=== PATIENT | male | born 2000 ===

== ENCOUNTER 2023-12-28 12:30 | Outpatient (AMB) | payer MEDICAID, SELFPAY ==
--- NOTE | 2023-12-28 13:03 | AM.OFFWIN_ITS ---
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 He has a primary care patient of [facility] in [facility], however has not been able to get in for an appointment. 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 Has done ADVERTISING COPY WRITER worked in the past without any issues. Past medical history is significant for a benign brain tumor, which is followed by [facility] and [facility]. He does have a ASSESSMENT CLINICIAN shunt for this, and over the years has had several shunt revisions. This has been stable for several years, and he is just monitored with an annual MRI. He denies any other medical issues, complaints, or complications. He is not on any medications. He denies any past injuries. He states he exercises regularly and eats well. Recently had a son. [facility] Medical History (Updated 12/28/23 @ 13:20 by YAZAN Villasenor) Benign brain tumor Surgical History S/P ASSESSMENT CLINICIAN shunt Social History Patient Tobacco Use Status: Never used Tobacco Review of Systems Const All systems reviewed & are unremarkable except as noted in HPI and below Physical Exam Vital Signs: Last Vital Signs Pulse 74 12/28/23 13:04 BP 122/82 12/28/23 13:04 Pulse Ox 98 12/28/23 13:04 Oxygen Delivery Method Room Air 12/28/23 13:04 Const General: cooperative, healthy appearing, comfortable and no acute distress Nutritional Appearance: average body habitus and well nourished Orientation/consciousness: patient oriented x3 Limitations: no limitations HEENT Head: Yes normal to inspection Ears: hearing grossly normal bilaterally General nose exam: Normal external nose present Face and sinus: Yes normal facial exam Throat: Yes posterior oropharynx normal Eyes General: appearance normal, both eyes and all related structures Neck Neck: Yes full ROM and Yes no lymphadenopathy Resp Effort & Inspection: normal respiratory effort Auscultation: clear to auscultation bilaterally Cardio Rate: regular rate Rhythm: regular rhythm GI Palpation (GI): Soft to palpation Skin General skin exam: no rashes or lesions noted Neuro General: patient oriented x3, gait normal and deep tendon reflexes 2+ bilaterally Extrem General: Yes normal to inspection, Yes full ROM, Yes capillary refill normal, Yes no joint enlargement and Yes no clubbing, cyanosis or edema Psych Appearance: grossly normal Mental Status: mental status grossly normal Speech and movement: Normal speech and movement present Assessment & Plan Assessment & Plan (1) Physical exam: Code(s): Z00.00 - Encounter for general adult medical examination without abnormal findings Plan: Physical exam today was unremarkable. I provided patient with a note stating he underwent a pre-employment physical without abnormal findings or indications for job restrictions. He will f/u with PCP as needed. He agrees to plan. Coding Level of Care Code Sports/Work/School Physical Diagnoses Physical exam Z00.00
[2023-12-28 13:04] VITALS: BP 122/82; PULSE 74; O2SAT 98
== END 2023-12-28 13:24 | disposition home or self-care (01) ==
PROVIDERS: Visit Provider Nurse Practitioner Family
DX: Z02.1 Encounter for pre-employment examination (principal)